=== PATIENT | female | born 1955 | race Caucasian/White ===

== ENCOUNTER 2022-04-19 12:04 | Outpatient (CLI) | payer MEDICARE ==
[~2022-04-19 12:04] MED LIST: Iopamidol 370 76% 100 ML VIAL ONE
== END 2022-04-19 12:05 | disposition home or self-care (01) ==
LOC: CSHCT 12:04
PROVIDERS: ATTEND Family Medicine
DX: K86.89 Other specified diseases of pancreas (principal); K57.30 Diverticulosis of large intestine without perforation or abscess without bleeding; Z98.890 Other specified postprocedural states
CPT/HCPCS: 74170; 82565; Q9967

== ENCOUNTER 2023-12-18 12:05 | Emergency (ER) | payer MEDICARE ==
[2023-12-18] MEDS ORDERED: Morphine 4 MG/ML VIAL ONE ×3 (12:28→14:50)
[2023-12-18 12:48] LABS: #Basophils 0.06 10x3/uL (0.0-0.2); #Eosinophils 0.46 10x3/uL (0.0-0.5); #Monocytes 0.68 10x3/uL (0.0-1.1); #Neutrophils 3.37 10x3/uL (1.5-8.4); %Basophils 0.9 % (0.0-2.0); %Lymphocytes 30.5 % (18.0-47.0); %Monocytes 10.3 % (0.0-10.0); Hematocrit 39.8 % (34.9-44.5); Hemoglobin 13.2 g/dL (12.0-15.5); Mean Corpuscular HGB CONC 33.2 g/dL (32.0-36.0); Mean Corpuscular Hemoglobin 30.9 pg (27.0-33.0); Mean Corpuscular Volume 93.2 fL (81.6-98.3); Mean Platelet Volume 10.8 fL (7.4-10.4); Platelet Count 186 10x3/uL (150-450); RBC Distribution Width 12.9 % (11.5-14.5); Red Blood Cell (RBC) Count 4.27 10x6/uL (3.90-5.03); White Blood Cell (WBC) Count 6.6 10x3/uL (3.5-10.5)
[2023-12-18 13:01] LABS: ALT (SGPT) 10 U/L (8-55); AST (SGOT) 16 U/L (5-34); Albumin 3.4 g/dL (3.4-4.8); Alkaline Phosphatase 131 U/L (40-110); Anion Gap 13 mmol/L (10-20); BUN (Urea Nitrogen) 19 mg/dL (9.8-20.1); Bilirubin, Total 0.4 mg/dL (0.2-1.2); Calc. Creatinine Clearance 0 mL/min (70-130); Calcium 9.3 mg/dL (7.8-10.44); Carbon Dioxide 21 mmol/L (23-31); Chloride 113 mmol/L (98-107); Estimated GFR 77; Globulin 2.5 g/dL (2.4-3.5); Glucose 115 mg/dL (80-115); Potassium 3.9 mmol/L (3.5-5.1); Protein, Total 5.9 g/dL (5.8-8.1); Sodium 143 mmol/L (136-145)
== END 2023-12-18 15:05 | disposition home or self-care (01) ==
LOC: CSHERS 12:05
DX: S52.572A Other intraarticular fracture of lower end of left radius, initial encounter for closed fracture (principal); S52.615A Nondisplaced fracture of left ulna styloid process, initial encounter for closed fracture; W01.10XA Fall on same level from slipping, tripping and stumbling with subsequent striking against unspecified object, initial encounter; Z79.899 Other long term (current) drug therapy
CPT/HCPCS: 25560; 70450; 71045; 72125; 73090; 80053; 85025; 96374; 96376; 99284; J2272; 36415

== ENCOUNTER 2024-03-02 13:07 | Emergency (ER) | payer MEDICARE | END 2024-03-02 15:20 | disposition home or self-care (01) | LOC: CSHERS 13:07 | DX: M79.672 Pain in left foot (principal); R54 Age-related physical debility; X50.1XXA Overexertion from prolonged static or awkward postures, initial encounter | CPT/HCPCS: 99284 ==